=== PATIENT | male | born 1960 | race Caucasian/White ===

== ENCOUNTER 2021-03-06 11:55 | Emergency (ER) | payer OTHER ==
[2021-03-06 12:31] VITALS: BP 141/92; PULSE 81
--- NOTE | 2021-03-06 12:39 | EDM.PDOC ---
ED HPI GENERAL MEDICAL PROBLEM - General Chief Complaint: ENT Problem Stated Complaint: ABSCESS IN RT SIDE LOWER TOOTH Time Seen by Provider: 03/06/21 12:20 Source of Information: Reports: Patient History Limitations: Reports: No Limitations - History of Present Illness INITIAL COMMENTS - FREE TEXT/NARRATIVE: This is a 60-year-old male presents with concerns of dental pain. He reports that 3 days ago he began to notice pain in the right lower molar. Is increased intensity since this time. He found some old penicillin from a family member that he has been taking which he feels like has improved the pain. He has no fevers or chills. Difficulty opening the mouth but no difficulty swallowing. He is planned for follow-up with a dentist tomorrow but is seeking an antibio tic. Right Lower Oral/Mouth Pain Score (Numeric/FACES): 4 - Related Data Allergies Allergy/AdvReac Type Severity Reaction Status Date / Time naproxen sodium [From Aleve] Allergy Rash Verified 03/06/21 12:13 Home Meds: Home Meds Levothyroxine Sodium [Synthroid] 200 mcg PO DAILY 06/23/14 [History] sulfaSALAzine [Azulfidine] 1,500 mg PO BID 06/23/14 [History] Amoxicillin/Potassium Clav [Augmentin 875-125 Tablet] 1 each PO Q12H #14 tablet 03/06/21 [Rx] Gabapentin [Neurontin] 600 mg PO BID 03/06/21 [History] Past Medical History Cardiovascular History: Reports: None Respiratory History: Reports: None Gastrointestinal History: Reports: None Genitourinary History: Reports: Renal Calculus Musculoskeletal History: Reports: Fracture, RA Neurological History: Reports: None Psychiatric History: Reports: None Endocrine/Metabolic History: Reports: Hypothyroidism, Obesity/BMI 30+ Hematologic History: Reports: None Immunologic History: Reports: None Oncologic (Cancer) History: Reports: None Dermatologic History: Reports: None - Infectious Disease History Infectious Disease History: Reports: Chicken Pox, Influenza, Measles, Mumps - Past Surgical History HEENT Surgical History: Reports: Adenoidectomy, Tonsillectomy GI Surgical History: Reports: Colonoscopy Musculoskeletal Surgical History: Reports: None Social & Family History - Tobacco Use Tobacco Use Status *Q: Current Every Day Tobacco User Years of Tobacco use: 30 Packs/Tins Daily: 0.5 - Caffeine Use Caffeine Use: Reports: Coffee - Recreational Drug Use Recreational Drug Use: No ED ROS ENT - Review of Systems Review Of Systems: See Below Constitutional: Reports: No Symptoms HEENT: Reports: Dental Pain Respiratory: Reports: No Symptoms Cardiovascular: Reports: No Symptoms Endocrine: Reports: No Symptoms GI/Abdominal: Reports: No Symptoms : Reports: No Symptoms Musculoskeletal: Reports: No Symptoms Skin: Reports: No Symptoms Neurological: Reports: No Symptoms Psychiatric: Reports: No Symptoms Hematologic/Lymphatic: Reports: No Symptoms Immunologic: Reports: No Symptoms ED EXAM, ENT - Physical Exam Exam: See Below Exam Limited By: No Limitations General Appearance: Alert, No Apparent Distress Ears: Normal External Exam Nose: Normal Inspection Mouth/Throat: Other (Multiple fractured teeth, several fractured right lower molars, no surrounding erythema or fluctuance. Overall poor dentition.) Head: Atraumatic, Normocephalic Neck: Normal Inspection Respiratory/Chest: No Respiratory Distress Cardiovascular: Regular Rate, Rhythm GI/Abdominal: No Distention Back: Normal Inspection Extremities: Normal Inspection Neurological: Alert, Oriented Psychiatric: Normal Affect, Normal Mood Skin: Warm, Dry Course - Vital Signs Last Recorded V/S: Last Vital Signs Temp 36.6 C 03/06/21 12:08 Pulse 81 03/06/21 12:08 Resp 16 03/06/21 12:08 BP 141/92 H 03/06/21 12:08 Pulse Ox 95 03/06/21 12:08 - Re-Assessments/Exams Free Text/Narrative Re-Assessment/Exam: This is a 60-year-old male presented concerns of dental pain around the site of a fractured right lower molar. Very tender in the mandible around this area. No obvious abscess to drain. Overall well-appearing. We are starting him on Augmentin. He has follow-up with a dentist arranged for tomorrow, encouraged him to make this for definitive treatment. 03/06/21 12:46 Departure - Departure Time of Disposition: 12:37 Disposition: Home, Self-Care 01 Clinical Impression: Pain, dental - Discharge Information *PRESCRIPTION DRUG MONITORING PROGRAM REVIEWED*: No *COPY OF PRESCRIPTION DRUG MONITORING REPORT IN PATIENT COLLEEN: No Prescriptions: Amoxicillin/Potassium Clav [Augmentin 875-125 Tablet] 1 each PO Q12H #14 tablet Instructions: Managing Pain Without Opioids, Dental Abscess Referrals: Anurag Robles MD [Primary Care Provider] - Forms: ED Department Discharge Additional Instructions: We agree that you probably have an infection below your tooth. Please take the prescribed antibiotic. It is important that you follow-up with a dentist for definitive treatment. As discussed, if you develop worsening pain, pain in the neck, inability to open the mouth please return to the ER so we can reevaluate you as these may be signs of worsening infection. Thank you for trusting us to care for you today. Sepsis Event Note (ED) - Evaluation Sepsis Screening Result: No Definite Risk - Focused Exam Vital Signs: Vital Signs Temp Pulse Resp BP Pulse Ox 03/06/21 12:08 36.6 C 81 16 141/92 H 95
== END 2021-03-06 12:54 | disposition home or self-care (01) ==
LOC: JP.ED 11:55
DX: K03.81 Cracked tooth (principal); E03.9 Hypothyroidism, unspecified; E66.9 Obesity, unspecified; Z68.35 Body mass index [BMI] 35.0-35.9, adult; Z72.0 Tobacco use; Z79.899 Other long term (current) drug therapy
CPT/HCPCS: 99282